=== PATIENT | female | born 1940 | race Caucasian/White ===

== ENCOUNTER 2018-09-10 18:47 | Emergency (ER) | payer OTHER ==
[~2018-09-10] VITALS: Ht 160 cm; Wt 81.6 kg
[2018-09-10 18:47] VITALS: BP 159/97
--- NOTE | 2018-09-10 18:47 | NUR ---
patient ambulated to rm 2 with steady gait
--- NOTE | 2018-09-10 18:50 | NUR ---
Oxygen applied at 2 L per minute via NC.
--- NOTE | 2018-09-10 19:05 | NUR ---
bib daughter with c/o 8/10 forehead and occipital headache with cough and chest congestion x 2 days. Patient also repors of intermittent dizziness. Patient also reports of 8/10 left chest wall pain upon coughing. Patient denies any sob. RR are even and tachypenic. pulse ox=94% on ra. hx--GERD rx--Prilosec
--- NOTE | 2018-09-10 19:08 | NUR ---
Pt report given to Joseph CEDILLO. Transfer of care at this time.
--- NOTE | 2018-09-10 19:11 | NUR ---
ASSUMED CARE OF PT FROM JAMES CEDILLO
[2018-09-10] MEDS ORDERED: ONDANSETRON 4 MG/2 ML VIAL IVP ONE (19:25)
[2018-09-10] MEDS ORDERED: KETOROLAC 15 MG/ML VIAL IVP ONE (19:25)
[2018-09-10 20:14] LABS: BASOPHILS % (AUTO) 0.3 % (0.0-2.0); WHITE BLOOD COUNT (AUTO) 4.6 K/uL (4.8-10.8)
[2018-09-10 20:20] LABS: EOSINOPHILS % (AUTO) 0.1 % (0.0-4.0); HEMOGLOBIN 13.8 g/dL (12.0-16.0); LYMPHOCYTES # (AUTO) 1.1 K/uL (2.5-16.5); LYMPHOCYTES % (AUTO) 24.2 % (20.5-51.1); MEAN CORPUSCULAR HEMOGLOBIN 30 pg (27-31); MEAN CORPUSCULAR HGB CONC 33 g/dL (33-37); MEAN CORPUSCULAR VOLUME 90.9 fL (80-94); MONOCYTES # (AUTO) 0.8 K/uL (0.8-1.0); MONOCYTES % (AUTO) 17.8 % (1.7-9.3); NEUTROPHILS # (AUTO) 2.7 K/uL (1.8-7.7); NEUTROPHILS % (AUTO) 57.6 % (42.2-75.2); PLATELET COUNT (AUTO) 140 K/uL (140-450); RED BLOOD CELL COUNT(AUTO) 4.62 MIL/uL (4.20-5.40); RED CELL DISTRIBUTION WIDTH 13.2 % (11.6-13.7)
[2018-09-10 20:21] LABS: ALBUMIN 3.3 g/dL (3.4-5.0); ANION GAP 13.7 (8-16); ASPARTATE AMINOTRANSFERASE 31 U/L (15-37); CARBON DIOXIDE 23.8 mmol/L (21-32); CHLORIDE 102 mmol/L (98-107); CREATININE 0.8 mg/dL (0.6-1.3); GLUCOSE 90 mg/dL (74-106); POTASSIUM 3.5 mmol/L (3.5-5.1); SODIUM SERUM 136 mmol/L (136-145); TOTAL BILIRUBIN 0.3 mg/dL (0.0-1.0); UREA NITROGEN, BLOOD 13 mg/dL (7-18)
--- NOTE | 2018-09-10 21:00 | NUR ---
PT RESTING, VSS. NO COMPLAINTS AT THIS TIME.
[2018-09-10 21:26] VITALS: BP 117/68
--- NOTE | 2018-09-10 21:27 | NUR ---
Patient discharged with v/s stable. Written and verbal after care instructions given and explained. Patient alert, oriented and verbalized understanding of instructions. Ambulatory with steady gait. All questions addressed prior to discharge. ID band removed. Patient advised to follow up with PMD. Rx of TAMIFLU, ZOFRAN, NAPROSYN, ACTEAMINPHEN given. Patient educated on indication of medication including possible reaction and side effects. Opportunity to ask questions provided and answered.
== END 2018-09-10 21:26 | disposition home or self-care (01) ==
LOC: MED 18:47
DX: J09.X2 Influenza due to identified novel influenza A virus with other respiratory manifestations (principal); K21.9 Gastro-esophageal reflux disease without esophagitis
CPT/HCPCS: 36415; 70450; 71045; 80053; 83880; 84484; 85025; 87804; 93005; 96374; 96375; 99284; J1885; J2405; Q0092